=== PATIENT | male | born 1950 | race Caucasian/White ===

== ENCOUNTER 2017-06-28 10:48 | Day surgery (SDC) | payer OTHER | END 2017-06-28 15:00 | disposition home or self-care (01) | LOC: AMB-ENDOS 10:48 → CIR.AMB 13:15 → AMB-ENDOS 13:15 | DX: D12.0 Benign neoplasm of cecum (principal); K57.32 Diverticulitis of large intestine without perforation or abscess without bleeding; K64.8 Other hemorrhoids ==